=== PATIENT | female | born 1965 | race Caucasian/White ===

== ENCOUNTER 2018-11-13 12:39 | Emergency (ER) | payer MEDICAID ==
[2018-11-13] MEDS: ACETAMINOPHEN 325 MG TAB PO (14:10)
== END 2018-11-13 14:59 | disposition home or self-care (01) ==
LOC: E/R 12:39
DX: B34.9 Viral infection, unspecified (principal); I10 Essential (primary) hypertension; Z79.82 Long term (current) use of aspirin
CPT/HCPCS: 99283; Z7502